=== PATIENT | male | born 1970 | race Two or more races ===

== ENCOUNTER 2021-03-31 16:44 | Emergency (ER) | payer OTHER ==
[~2021-03-31] VITALS: Ht 175.3 cm; Wt 104.8 kg
[~2021-03-31 16:44] MED LIST: ACET325T21 PO; ALBU8HFA INH; DEXA6TAB6 PO; DOCU-153 PO; DOXY100C2 PO; GUAI5SYR PO; INSU100V35 SQ; INSU100V8 SQ; LACT1CAP19 PO
[2021-03-31] MEDS ORDERED: IV NORMAL SALINE 1000ML BAG 1,000 ML IV SCH (17:15)
[2021-03-31 17:32] LABS: BASO # 0.1 x10^3/uL (0.0-0.2); BASO % 1 % (0-3); EOS # 0.1 x10^3/uL (0.0-0.7); EOS % 0 % (0-3); HEMATOCRIT 41.9 % (39.0-53.0); HEMOGLOBIN 14.3 g/dL (13.0-17.5); LYMPH # 2.4 x10^3/uL (1.0-4.8); LYMPH % 19 % (24-48); MEAN CORPUSCULAR HEMOGLOBIN 32 pg (25-35); MEAN CORPUSCULAR HGB CONC 34 g/dL (31-37); MEAN CORPUSCULAR VOLUME 94 fL (79-100); MONO # 1.2 x10^3/uL (0.0-1.1); MONO % 10 % (0-9); NEUT # 9.2 x10^3/uL (1.8-7.7); NEUT % 70 % (31-73); PLATELET COUNT 343 x10^3/uL (140-400); RED BLOOD COUNT 4.48 x10^6/uL (4.30-5.70); WHITE BLOOD COUNT 13.1 x10^3/uL (4.0-11.0)
--- NOTE | 2021-03-31 17:44 | PHYS DOC ---
Past Medical History Past Medical History: Diabetes-Type II, Pneumonia, Other Additional Past Medical Histor: covid Past Surgical History: No Surgical History Smoking Status: Never Smoker Alcohol Use: None General Adult EDM: Chief Complaint: RAPID HEART RATE HPI: HPI: Patient is a 50 year old male who presents with got his second Covid shot on this past and then Tuesday had 101 fever and had palpitations with a high heart rate. He states he went to urgent care and they stated that it was pretty normal and for him to go home. Patient states that the fever is gone but now he still continues to have the palpitations. He states it is intermittent. He states actually when he standing up and walking around the palpitations get better. Patient denies chest pain, shortness of air, dizziness, syncope, numbness or tingling, focal weakness, vision change, cough. Patient has a histo ry of diabetes and pneumonia, COVID-19 in February. Review of Systems: Review of Systems: Constitutional: Denies fever or chills. [] Eyes: Denies change in visual acuity. [] HENT: Denies nasal congestion or sore throat. [] Respiratory: Denies cough or shortness of breath. [] Cardiovascular: Denies chest pain or edema. + Palpitations [] GI: Denies abdominal pain, nausea, vomiting, bloody stools or diarrhea. [] : Denies dysuria. [] Musculoskeletal: Denies back pain or joint pain. [] Integument: Denies rash. [] Neurologic: Denies headache, focal weakness or sensory changes. [] Endocrine: Denies polyuria or polydipsia. [] Lymphatic: Denies swollen glands. [] Psychiatric: Denies depression or anxiety. [] Heart Score: C/O Chest Pain: No Risk Factors: Risk Factors: DM, Current or recent (<one month) smoker, HTN, HLP, family history of CAD, obesity. Risk Scores: Score 0 - 3: 2.5% MACE over next 6 weeks - Discharge Home Score 4 - 6: 20.3% MACE over next 6 weeks - Admit for Clinical Observation Score 7 - 10: 72.7% MACE over next 6 weeks - Early Invasive Strategies Current Medications: Current Medications Medications (Trade) Dose Ordered Sig/Vicente Start Time Stop Time Status Last Admin Dose Admin Sodium Chloride 1,000 ml @ 1,000 mls/hr Q1H 03/31/21 17:15 03/31/21 18:14 Allergies: Allergies: Allergies Coded Allergies Type Severity Reaction Last Updated Verified No Known Drug Allergies 02/17/21 No Physical Exam: PE: Constitutional: Well developed, well nourished, no acute distress, non-toxic appearance. [] HENT: Normocephalic, atraumatic, bilateral external ears normal, oropharynx moist, no oral exudates, nose normal. [] Eyes: PERRLA, EOMI, conjunctiva normal, no discharge. [] Neck: Normal range of motion, no tenderness, supple, no stridor. [] Cardiovascular:Heart rate tachycardic regular rhythm, no murmur [] Lungs & Thorax: Bilateral breath sounds clear to auscultation [] Abdomen: Bowel sounds normal, soft, no tenderness, no masses, no pulsatile mass es. [] Skin: Warm, dry, no erythema, no rash. [] Back: No tenderness, no CVA tenderness. [] Extremities: No tenderness, no cyanosis, no clubbing, ROM intact, no edema. [] Neurologic: Alert and oriented X 3, normal motor function, normal sensory function, no focal deficits noted. [] Psychologic: Affect normal, judgement normal, mood normal. [] Current Patient Data: Labs: Laboratory Tests Test 03/31/21 17:20 White Blood Count 13.1 x10^3/uL (4.0-11.0) H Red Blood Count 4.48 x10^6/uL (4.30-5.70) Hemoglobin 14.3 g/dL (13.0-17.5) Hematocrit 41.9 % (39.0-53.0) Mean Corpuscular Volume 94 fL (79-100) Mean Corpuscular Hemoglobin 32 pg (25-35) Mean Corpuscular Hemoglobin Concent 34 g/dL (31-37) Red Cell Distribution Width 14.0 % (11.5-14.5) Platelet Count 343 x10^3/uL (140-400) Neutrophils (%) (Auto) 70 % (31-73) Lymphocytes (%) (Auto) 19 % (24-48) L Monocytes (%) (Auto) 10 % (0-9) H Eosinophils (%) (Auto) 0 % (0-3) Basophils (%) (Auto) 1 % (0-3) Neutrophils # (Auto) 9.2 x10^3/uL (1.8-7.7) H Lymphocytes # (Auto) 2.4 x10^3/uL (1.0-4.8) Monocytes # (Auto) 1.2 x10^3/uL (0.0-1.1) H Eosinophils # (Auto) 0.1 x10^3/uL (0.0-0.7) Basophils # (Auto) 0.1 x10^3/uL (0.0-0.2) Laboratory Tests 03/31/21 17:20 Vital Signs: Vital Signs Date Time Temp Pulse Resp B/P (MAP) Pulse Ox O2 Delivery O2 Flow Rate FiO2 03/31/21 16:55 98.4 124 24 165/68 (100) 100 Room Air 98.4 EKG: EK and read by Dr. Quintero is sinus tach and no STEMI Radiology/Procedures: Radiology/Procedures: [] Impression: [facility] [address] [place] [address] IMAGING REPORT Signed PATIENT: MILIND LEIGH JACCOUNT: [id number] : 1970 LOCATION: ER AGE: 50 SEX: M EXAM STATUS: REG ER ORD. PHYSICIAN: SLY MARTINEZ APRN REASON: RAPID HEART RATE, SOA PROCEDURE: CT ANGIOGRAPHY CHEST Exam: CT of chest with contrast INDICATION: Rapid heart rate TECHNIQUE: Sequential axial images through the chest obtained following the administration 100 mL of Omni 350 IV contrast. Sagittal and coronal reformatted images were reconstructed from the axial data and reviewed. 3-D reformatted images were reconstructed from the axial data and reviewed. Exposure: One or more of the following in the visualized dose reduction techniques were utilized for this examination: 1. Automated exposure control 2. Adjustment of the MA and/or KV according to patient size 3. Use of iterative of reconstructive technique Comparisons: 02/17/2021 FINDINGS: Visual is portions of the thyroid are unremarkable. No enlarged mediastinal lymph nodes. Right size is normal. Mild coronary artery calcium lesions. Thoracic aorta has a normal course and caliber. Pulmonary artery is not enlarged. No pulmonary embolus identified within the main, lobar or segmental pulmonary arteries. Airways patent. No consolidation or pneumothorax. Subtle patchy ground glass opacity in the lower lobes bilaterally. 4 mm nodule right lower lobe series 3 image 73. No pleural effusion or thickening. Visualized upper abdomen is unremarkable. No suspicious osseous lesions or acute fractures. IMPRESSION: 1. No pulmonary embolus identified within the main, lobar or segmental pulmonary arteries. 2. Subtle areas of groundglass opacity at the lower lobes bilaterally, likely representing sequela of resolving infectious inflammatory process seen on CT from 02/07/2021 3. A 4 mm nodule in the right lower lobe as described above. No large patient no further follow-up imaging is recommended. In a high-risk patient optional one-year follow-up chest CT can BE performed. Electronically signed by: Chin Rosa MD (03/31/2021 6:27 PM) [facility] DICTATED and SIGNED BY: CHIN ROSA MD DATE: 03/31/21 [id number] Course & Med Decision Making: Course & Med Decision Making Pertinent Labs and Imaging studies reviewed. (See chart for details) See HPI. Alert and oriented x4. Ambulatory with steady gait. Skin pink warm and dry. EKG shows sinus tachycardia no STEMI. Abdomen soft and nontender. Speaks in full clear sentences. Patient is asymptomatic of tachycardia. Blood work unremarkable. Troponin negative. Thyroid level normal. I spoke to Dr Patino and Dr Lang concerning this patient and both agree the patient can go home and follow up with PCP. [place] Disclaimer: [place] Disclaimer: This electronic medical record was generated, in whole or in part, using a voice recognition dictation system. Departure Departure Impression: Primary Impression: Tachycardia Disposition: HOME / SELF CARE / HOMELESS Condition: STABLE Referrals: DAVON GROVER (PCP) Patient Instructions: Nonspecific Tachycardia Additional Instructions: Follow-up with your primary care provider. Drink plenty of fluids. If you begin having chest pain, shortness of breath or dizziness return to the emergency room. SLY MARTINEZ [employer] March 31, 2021 17:44
[2021-03-31 17:54] LABS: CALCIUM 9.7 mg/dL (8.5-10.1); CREATININE 0.9 mg/dL (0.7-1.3); GFR 89.3; POTASSIUM 4.7 mmol/L (3.5-5.1)
[2021-03-31 17:55] LABS: BILIRUBIN,URINE NEGATIVE (NEG); CLARITY,URINE CLEAR; COLOR,URINE YELLOW; NITRITE,URINE NEGATIVE (NEG); PROTEIN,URINE NEGATIVE (NEG-TRACE); UROBILINOGEN,URINE 0.2 mg/dL (0.2 mg/dL)
[2021-03-31 17:59] LABS: ALBUMIN 3.9 g/dL (3.4-5.0); ALBUMIN/GLOBULIN RATIO 0.9 (1.0-1.7); TOTAL BILIRUBIN 0.5 mg/dL (0.2-1.0); TOTAL PROTEIN 8.2 g/dL (6.4-8.2)
[2021-03-31] MEDS ORDERED: CONTRAST GIVEN. MC PRN (18:00)
[2021-03-31] MEDS ORDERED: IOHEXOL 350 MG/ML 100 ML VIAL. IV ONE (18:00)
[2021-03-31 18:02] LABS: BACTERIA,URINE 0 /HPF (0-FEW); BARBITURATES NEG (NEG); BENZODIAZEPINES NEG (NEG); CANNABINOIDS NEG (NEG); COCAINE NEG (NEG); METHADONE NEG (NEG); OPIATES NEG (NEG); PHENCYCLIDINE NEG (NEG); RBC,URINE 0 /HPF (0-2); WBC,URINE RARE /HPF (0-4)
[2021-03-31 18:05] LABS: AMPHETAMINE/METHAMPHETAMINE NEG (NEG)
--- NOTE | 2021-03-31 18:07 | EKG ---
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
--- NOTE | 2021-03-31 18:07 | EKG ---
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
--- NOTE | 2021-03-31 18:30 | RAD ---
Exam: CT of chest with contrast INDICATION: Rapid heart rate TECHNIQUE: Sequential axial images through the chest obtained following the administration 100 mL of Omni 350 IV contrast. Sagittal and coronal reformatted images were reconstructed from the axial data and reviewed. 3-D reformatted images were reconstructed from the axial data and reviewed. Exposure: One or more of the following in the visualized dose reduction techniques were utilized for this examination: 1. Automated exposure control 2. Adjustment of the MA and/or KV according to patient size 3. Use of iterative of reconstructive technique Comparisons: 02/17/2021 FINDINGS: Visual is portions of the thyroid are unremarkable. No enlarged mediastinal lymph nodes. Right size is normal. Mild coronary artery calcium lesions. Thoracic aorta has a normal course and ca liber. Pulmonary artery is not enlarged. No pulmonary embolus identified within the main, lobar or se gmental pulmonary arteries. Airways patent. No consolidation or pneumothorax. Subtle patchy ground glass opacity in the lower lob es bilaterally. 4 mm nodule right lower lobe series 3 image 73. No pleural effusion or thickening. Visualized upper abdomen is unremarkable. No suspicious osseous lesions or acute fractures. IMPRESSION: 1. No pulmonary embolus identified within the main, lobar or segmental pulmonary arteries. 2. Subtle areas of groundglass opacity at the lower lobes bilaterally, likely representing sequela o f resolving infectious inflammatory process seen on CT from 02/07/2021 3. A 4 mm nodule in the right lower lobe as described above. No large patient no further follow-up i maging is recommended. In a high-risk patient optional one-year follow-up chest CT can BE performed. Electronically signed by: Chin Bowman MD (03/31/2021 6:27 PM) [facility]
--- NOTE | 2021-03-31 18:52 | RAD ---
XR CHEST 1V History: Reason: RAPID HEART RATE / Spl. Instructions: / History: Comparison: February 17, 2021 Findings: No consolidation or pleural effusion. Normal heart size. No pneumothorax. Elevation the right hemidia phragm. Low lung volumes. Impression: 1. No acute cardiopulmonary process. 2. Low lung volumes with elevation the right hemidiaphragm. Electronically signed by: Reymundo Ibrahim DO (03/31/2021 6:49 PM) [facility]
[2021-03-31 20:00] VITALS: BP 130/63
[2021-03-31] MEDS ORDERED: LIDO:MAALOX 1:1 20 ML SINGLE DOSE. SWSW ONE (20:00)
== END 2021-03-31 20:23 ==
LOC: ER 16:44
DX: R00.0 Tachycardia, unspecified (principal); R50.9 Fever, unspecified; E11.9 Type 2 diabetes mellitus without complications
CPT/HCPCS: 36415; 71045; 71275; 80053; 80307; 81001; 83690; 83735; 83880; 84443; 84484; 85025; 93005; 96360; 99285; J7030; Q9967

== ENCOUNTER → 2021-12-04 | Outpatient (CLI) | payer OTHER ==
[2021-02-23 11:00] VITALS: BP 123/64
[~2021-12-04] MED LIST changes: +DOCU-148 PO; -DOCU-153 PO; -DOXY100C2 PO; +DOXY100C3 PO
--- NOTE | 2021-12-05 16:54 | CARD ---
MR#: [id number] Date of Study: 12/04/2021 Ordering Physician: POLO MURPHY, Referring Physician: POLO MURPHY, Tech: Vale Rodriguez [facility] APPROVED REPORT EXAM: Two-dimensional and M-mode echocardiogram with Doppler and color Doppler. Other Information Quality : AverageHR: 102bpm Rhythm : Tachycardia INDICATION Palpitations RISK FACTORS Hypertension Obesity 2D DIMENSIONS RVDd3.4 (2.9-3.5cm)Left Atrium(2D)3.6 (1.6-4.0cm) IVSd1.0 (0.7-1.1cm)Aortic Root(2D)3.4 (2.0-3.7cm) LVDd4.4 (3.9-5.9cm)LVOT Diameter2.1 (1.8-2.4cm) PWd1.0 (0.7-1.1cm)LVDs2.7 (2.5-4.0cm) FS (%) 37.1 %SV58.0 ml LVEF(%)67.3 (>50%) Aortic Valve AoV Peak Sukhjinder.151.2cm/sAoV VTI24.6cm AO Peak GR.9.1mmHgLVOT Peak Sukhjinder.117.2cm/s AO Mean GR.5mmHgAVA (VMAX)2.61cm2 Mitral Valve MV E Joxnseyg920.8cm/sMV DECEL IQOP100sw MV A Xlghwxkk663.5cm/sE/A Ratio0.9 Pulmonary Valve PV Peak Cakuuwww728.7cm/s Tricuspid Valve TR P. Wctkisda531iw/sTR Peak Gr.25mmHg LEFT VENTRICLE The left ventricle is normal size. There is normal left ventricular wall thickness. The left ventricu lar systolic function is normal and the ejection fraction is within normal range. EF 55% There is nor mal LV segmental wall motion. Transmitral Doppler flow pattern is Grade I-abnormal relaxation pattern . RIGHT VENTRICLE The right ventricle is normal size. There is normal right ventricular wall thickness. The right ventr icular systolic function is normal. ATRIA The left atrium size is normal. The right atrium size is normal. The interatrial septum is intact wit h no evidence for an atrial septal defect or patent foramen ovale as noted on 2-D or Doppler imaging. AORTIC VALVE The aortic valve is normal in structure and function. Doppler and Color Flow revealed no significant aortic regurgitation. There is no significant aortic valvular stenosis. MITRAL VALVE The mitral valve is normal in structure and function. There is no evidence of mitral valve prolapse. There is no mitral valve stenosis. Doppler and Color-flow revealed mild mitral regurgitation. TRICUSPID VALVE The tricuspid valve is normal in structure and function. Doppler and Color Flow revealed trace tricus pid regurgitation. Estimated PAP 30 mmHg. There is no tricuspid valve stenosis. PULMONIC VALVE The pulmonary valve is normal in structure and function. Doppler and Color Flow revealed no pulmonic valvular regurgitation. There is no pulmonic valvular stenosis. GREAT VESSELS The aortic root is normal in size. The ascending aorta is normal in size. The IVC is normal in size a nd collapses >50% with inspiration. PERICARDIAL EFFUSION There is no evidence of significant pericardial effusion. Critical Notification Critical Value: No <Conclusion> The left ventricular systolic function is normal and the ejection fraction is within normal range. EF 55% There is normal LV segmental wall motion. Signed by : Polo Murphy, Electronically Approved : 12/05/2021 16:53:32
== END ==
LOC: ECHO 09:46
PROVIDERS: ADMIT Internal Medicine; ATTEND Internal Medicine Cardiovascular Disease
DX: I34.0 Nonrheumatic mitral (valve) insufficiency (principal); R00.2 Palpitations
CPT/HCPCS: 93306; C8929